=== PATIENT | female | born 1990 ===

== ENCOUNTER 2018-05-21 18:34 | Emergency (ER) | payer MEDICAID ==
[2018-05-21 18:34] VITALS: BMI 32.4
[2018-05-21 19:51] VITALS: RESP 16; TEMP 98.5
--- NOTE | 2018-05-21 20:21 | ED PDOC ---
HPI: Abdomen Time Seen by Provider: 05/21/18 20:09 Chief Complaint (Nursing): Abdominal Pain Chief Complaint (Provider): abdominal pain History Per: Patient History/Exam Limitations: no limitations Onset/Duration Of Symptoms: Days (1) Current Symptoms Are (Timing): Still Present Location Of Pain/Discomfort: RLQ, LLQ, Suprapubic Quality Of Discomfort: Cramping Additional Complaint(s): 27 y/o female presents for evaluation of lower abdominal cramping since last night. Patient states she was at the doctor on Sunday with her child who tested positive for influenza so they told her to get checked and they did a test which was positive. Denies fever, nausea/vomiting, cough, congestion, changes in bowel movements, urinary symptoms, vaginal bleeding/discharge. Abnormal Vaginal Bleeding: No Last Menstral Period: 04/03/18 : 4 Para: 1 Miscarriage: 2 Past Medical History Vital Signs: Last Vital Signs Temp 98.5 F 05/21/18 19:48 Pulse 63 05/21/18 19:48 Resp 16 05/21/18 19:48 BP 119/76 05/21/18 19:48 Pulse Ox 99 05/21/18 19:48 - Medical History PMH: Anemia - Surgical History Surgical History: Cholecystectomy Other surgeries: gastric sleeve 10/2018 - Family History Family History: States: No Known Family Hx - Home Medications Home Medications: Ambulatory Orders Medication Instructions Recorded Acetaminophen/Butalbital/Caf 1 tab PO DAILY PRN 02/14/15 [Fioricet] Ferrous Sulfate 1 tab PO DAILY 02/14/15 Ibuprofen [Motrin] 600 mg PO Q6H PRN #30 tab 02/16/15 Oxycodone HCl/Acetaminophen 1 tab PO Q4H PRN #10 tab 02/16/15 [Percocet 325 mg-5 mg] - Allergies Allergies/Adverse Reactions: Allergies Allergy/AdvReac Type Severity Reaction Status Date / Time No Known Allergies Allergy Verified 03/26/17 19:04 Review of Systems ROS Statement: Except As Marked, All Systems Reviewed And Found Negative Genitourinary Female: Positive for: Pelvic Pain Physical Exam - Reviewed Nursing Documentation Reviewed: Yes Vital Signs Reviewed: Yes - Physical Exam Appears: Positive for: Well, Non-toxic, No Acute Distress Head Exam: Positive for: ATRAUMATIC, NORMAL INSPECTION, NORMOCEPHALIC Skin: Positive for: Normal Color Eye Exam: Positive for: Normal appearance ENT: Positive for: Normal ENT Inspection Cardiovascular/Chest: Positive for: Regular Rate, Rhythm Respiratory: Positive for: Normal Breath Sounds Gastrointestinal/Abdominal: Positive for: Bowel Sounds, Soft, Tenderness (suprapubic, rlq, llq discomfort). Negative for: Distended, Guarding, Rebound Back: Positive for: Normal Inspection Extremity: Positive for: Normal ROM Neurological/Psych: Positive for: Awake, Alert, Oriented (x3) - Laboratory Results Result Diagrams: 05/21/18 20:56 05/21/18 20:56 - ECG O2 Sat by Pulse Oximetry: 99 - Progress ED Course And Treament: -upreg -udip -cbc -cmp -beta hcg -OB TV u/s History Possible . Pain. Comparison None available. Findings Uterus Possible gestational sac is seen measuring 0.2 cm. No pole, yolk sac or heart motion identified. Uterus measures 6.1 x 3.9 x 4.5 cm. No mass. Cervix Long and closed measuring 3.2 cm. No cervical abnormality seen. Right Ovary Measures 2.2 x 1.3 x 2 cm. No mass. Normal flow. Left Ovary Measures 2.5 x 1.4 x 2.7 cm. No mass. Normal flow. Free Fluid None. Other Findings None. Impression Tiny sac like structure within the endometrium which could represent early IUP. Patient educated on findings, discharged with instructions to follow up in 48 hours for repeat beta Return precautions given Disposition - Clinical Impression Clinical Impression: Abdominal pain during - Patient ED Disposition Is Patient to be Admitted: No Counseled Patient/Family Regarding: Studies Performed, Diagnosis, Need For Followup - Disposition Disposition: Routine/Home Disposition Time: 22:18 Condition: IMPROVED Instructions: Stomach Pain in Early
[2018-05-21 20:58] LABS: SQUAMOUS EPITHIAL 9 /hpf (0-5); URINE AMORPHOUS SEDIMENT FEW /ul (<OCC); URINE BACTERIA OCC (<OCC); URINE BILIRUBIN NEGATIVE (NEGATIVE); URINE BLOOD NEGATIVE (NEGATIVE); URINE COLOR YELLOW (YELLOW); URINE GLUCOSE (UA) NEG (NEGATIVE); URINE LEUKOCYTE ESTERASE NEG Leu/uL (Negative); URINE PROTEIN 30 mg/dL (NEGATIVE); URINE UROBILINOGEN 0.2-1.0 mg/dL (0.2-1.0)
[2018-05-21 21:03] LABS: BASO # 0.1 K/uL (0.0-0.2); BASO % 0.8 % (0.0-2.0); EOS # 0.2 K/uL (0.0-0.7); EOS % 1.9 % (0.0-4.0); HEMOGLOBIN 14.3 g/dL (12.0-16.0); LYMPH % 30.4 % (20.0-40.0); MEAN CELL VOLUME 93.7 fl (81.0-99.0); MEAN CORPUSCULAR HEMOGLOBIN 31.2 pg (27.0-31.0); MEAN CORPUSCULAR HGB CONC 33.3 g/dL (33.0-37.0); MEAN PLATELET VOLUME 7.8 fl (7.2-11.7); MONO # 0.3 K/uL (0.0-0.8); MONO % 3.6 % (0.0-10.0); NEUT # 6.2 K/uL (1.8-7.0); NEUT % 63.3 % (50.0-75.0); RBC 4.59 Mil/uL (3.80-5.20); RED CELL DISTRIBUTION WIDTH 13.5 % (11.5-14.5); WHITE BLOOD COUNT 9.8 K/uL (4.8-10.8)
[2018-05-21 21:08] LABS: URINE CLARITY CLOUDY (Clear)
[2018-05-21 21:13] LABS: ALB/GLOB RATIO 1.2 (1.0-2.1); ALBUMIN 3.9 g/dL (3.5-5.0); BLOOD UREA NITROGEN 8 mg/dl (7-17); CALCIUM 8.4 mg/dL (8.4-10.2); GFR NON-AFRICAN AMERICAN > 60
[2018-05-21 21:33] LABS: ALT/SGPT 42 U/L (9-52); AST/SGOT 51 U/L (14-36)
[2018-05-21 22:40] VITALS: BP 122/81; PULSE 66; O2SAT 100
--- NOTE | 2018-05-22 10:19 | US ---
Date of service: 05/21/2018 HISTORY: ; pain COMPARISON: None available. TECHNIQUE: Transvaginal FINDINGS: UTERUS: Measures 6.1 x 3.9 x 4.5 cm. Retroverted uterus. No masses seen. ENDOMETRIUM: Measures 11 mm in diameter. Within the intrauterine cavity a tiny 2 mm fluid like focus which may represent a tiny gestational sac which is out of range for dating is noted. Beta HCG levels are not now available. CERVIX: No cervical abnormality identified. Closed RIGHT OVARY: Measures 2.2 x 1.3 x 2.0 cm. No solid mass. Normal flow. LEFT OVARY: Measures 2.5 x 1.4 x 2.7 cm. No solid mass. Normal flow. FREE FLUID: No significant free fluid noted. OTHER FINDINGS: None. IMPRESSION: Tiny 2 mm intra uterine cavity fluid like focus may represent a tiny very early gestational sac it is out of range for dating. No additional pathology noted. Consider follow-up with serial beta HCG levels and follow-up transvaginal pelvic ultrasound imaging in 10 to 14 days for further clarification. Concordant results (preliminary interpretation) provided by clarice.
== END 2018-05-21 22:19 | disposition home or self-care (01) ==
LOC: H.ER 18:34
DX: O26.91 Pregnancy related conditions, unspecified, first trimester (principal); R10.2 Pelvic and perineal pain

== ENCOUNTER 2018-05-26 18:58 | Emergency (ER) | payer MEDICAID ==
[2018-05-26 19:15] VITALS: BMI 21.5
[2018-05-26 19:16] VITALS: RESP 18; O2SAT 99
--- NOTE | 2018-05-26 20:52 | ED PDOC ---
HPI: Female Pain Time Seen by Provider: 05/26/18 19:00 Chief Complaint (Nursing): Female Genitourinary Chief Complaint (Provider): Female Genitourinary History Per: Patient History/Exam Limitations: no limitations Current Symptoms Are (Timing): Still Present Additional Complaint(s): Patient is a 27 year old female with a past medical history of anemia, gallbladder removal, and gastric sleeve, who presents to the emergency department complaining abdominal cramps. Patient was seen at this hospital last week and had a US. She was told to come back because her hcg levels were low. Patient has a history of A2. PMD: brackney Past Medical History Reviewed: Historical Data, Nursing Documentation, Vital Signs Vital Signs: Last Vital Signs Temp 98.5 F 05/26/18 19:15 Pulse 75 05/26/18 19:15 Resp 18 05/26/18 19:15 BP 127/82 05/26/18 19:15 Pulse Ox 99 05/26/18 19:15 - Medical History PMH: Anemia - Surgical History Surgical History: Cholecystectomy Other surgeries: Gastric sleeve - Family History Family History: States: Unknown Family Hx - Social History Current smoker - smoking cessation education provided: Yes (0.5 packs a day) Alcohol: None Drugs: Denies - Home Medications Home Medications: Ambulatory Orders Medication Instructions Recorded Acetaminophen/Butalbital/Caf 1 tab PO DAILY PRN 02/14/15 [Fioricet] Ferrous Sulfate 1 tab PO DAILY 02/14/15 Ibuprofen [Motrin] 600 mg PO Q6H PRN #30 tab 02/16/15 Oxycodone HCl/Acetaminophen 1 tab PO Q4H PRN #10 tab 02/16/15 [Percocet 325 mg-5 mg] Pnv No.95/Ferrous Fum/Folic AC 1 tab PO DAILY #14 tab 05/27/18 [Prenavite] - Allergies Allergies/Adverse Reactions: Allergies Allergy/AdvReac Type Severity Reaction Status Date / Time No Known Allergies Allergy Verified 03/26/17 19:04 Review of Systems ROS Statement: Except As Marked, All Systems Reviewed And Found Negative Gastrointestinal: Positive for: Abdominal Pain Physical Exam - Reviewed Nursing Documentation Reviewed: Yes Vital Signs Reviewed: Yes - Physical Exam Appears: Positive for: Non-toxic, No Acute Distress Head Exam: Positive for: ATRAUMATIC, NORMOCEPHALIC Skin: Positive for: Normal Color, Warm, Dry Eye Exam: Positive for: Normal appearance ENT: Positive for: Normal ENT Inspection Neck: Positive for: Normal, Painless ROM, Supple Cardiovascular/Chest: Positive for: Regular Rate, Rhythm. Negative for: Murmur Respiratory: Positive for: Normal Breath Sounds. Negative for: Respiratory Distress Gastrointestinal/Abdominal: Positive for: Bowel Sounds, Soft, Tenderness (left suprapubic tenderness ) Extremity: Positive for: Normal ROM Neurological/Psych: Positive for: Alert, Oriented - Laboratory Results Result Diagrams: 05/26/18 20:52 - ECG O2 Sat by Pulse Oximetry: 99 (RA) Pulse Ox Interpretation: Normal Medical Decision Making Medical Decision Making: Time: 2038 Plan: , follow up hcg --Beta HCG --CBC with differential --Urine culture --Urine test POC --Urinalysis --Transvaginal US Time: 2248 --HCG went up form May 21. --On May 21 it was 721 and today it is 3360. 00:22 Obstetric ultrasound, transvaginal. Indication: Followup ultrasound exam. Comparison: 05/21/2018. Findings: The uterus measures 7.5 x3.8x4.8 cm. Retroverted uterus. Normal cervical length measuring 2.9 cm. Normal right ovary. Normal left ovary. Intrauterine gestational sac like structure. Unchanged without interval appearance of a pole. Impression: Unchanged enteric one gestational saclike structure. 00:[address] Almanza, field operations supervisor OB-hair spinner, for patient. She stated that it is likely an early and recommended patient to follow up with gynecology clinic in one week. Will discharge patient home with a prescription for vitamins. Instructed patient on importance of follow up. Return precautions provided. Scribe Attestation: Documented by Koko Ellis, acting as a scribe forEdgar Lucero MD. Provider Scribe Attestation: All medical record entries made by the Scribe were at my direction and personally dictated by me. I have reviewed the chart and agree that the record accurately reflects my personal performance of the history, physical exam, medical decision making, and the department course for this patient. I have also personally directed, reviewed, and agree with the discharge instructions and disposition Disposition - Clinical Impression Clinical Impression: Early stage of - Patient ED Disposition Is Patient to be Admitted: No Counseled Patient/Family Regarding: Studies Performed, Diagnosis, Need For Followup - Disposition Referrals: [facility] [Outside] [facility] [Outside] Disposition: Routine/Home Disposition Time: 00:20 Condition: STABLE Additional Instructions: follow up in one week in the hair spinner clinic take vitamins return to the ED with any worsening or concerning symptoms such as bleeding or pain Prescriptions: Pnv No.95/Ferrous Fum/Folic AC [Prenavite] 1 tab PO DAILY #14 tab Instructions: Medications and Forms: [facility] ([place])
[2018-05-26 21:00] LABS: BASO # 0.1 K/uL (0.0-0.2); BASO % 0.7 % (0.0-2.0); EOS # 0.1 K/uL (0.0-0.7); EOS % 0.7 % (0.0-4.0); HEMOGLOBIN 14.6 g/dL (12.0-16.0); LYMPH # 2.7 K/uL (1.0-4.3); LYMPH % 34.1 % (20.0-40.0); MEAN CELL VOLUME 92.4 fl (81.0-99.0); MEAN CORPUSCULAR HGB CONC 33.5 g/dL (33.0-37.0); MEAN PLATELET VOLUME 7.5 fl (7.2-11.7); MONO # 0.5 K/uL (0.0-0.8); MONO % 6.7 % (0.0-10.0); NEUT # 4.6 K/uL (1.8-7.0); NEUT % 57.8 % (50.0-75.0); RBC 4.72 Mil/uL (3.80-5.20); RED CELL DISTRIBUTION WIDTH 13.3 % (11.5-14.5)
[2018-05-26 21:28] LABS: SQUAMOUS EPITHIAL 4 /hpf (0-5); URINE AMORPHOUS SEDIMENT FEW /ul (<OCC); URINE BACTERIA OCC (<OCC); URINE BILIRUBIN NEGATIVE (NEGATIVE); URINE BLOOD NEGATIVE (NEGATIVE); URINE CLARITY CLOUDY (Clear); URINE COLOR AMBER (YELLOW); URINE GLUCOSE (UA) NEG (NEGATIVE); URINE LEUKOCYTE ESTERASE NEG Leu/uL (Negative); URINE PROTEIN NEGATIVE (NEGATIVE)
[2018-05-27 01:07] VITALS: BP 124/76; PULSE 72; TEMP 98.4
--- NOTE | 2018-05-27 14:45 | US ---
Date of service: 05/26/2018 HISTORY: Repeat. COMPARISON: Comparison made with prior study 05/21/2017 TECHNIQUE: Transvaginal sonographic evaluation of the pelvis performed. FINDINGS: UTERUS: Measures 7.5 x 3.8 x 4.8 cm. Normal in size and appearance.. Retroverted. No fibroid or other mass lesion seen. ENDOMETRIUM: There is a small elliptical shaped fluid collection within the endometrial canal that measures approximately 0.6 x 0.8 x 0.6 cm that appears to contain a small echogenic septation.. No discrete pole or yolk sac identified. This could represent a small very early intrauterine gestational sac and is out of range to accurately date however the possibility of an ectopic not excluded. Continued follow-up with serial quantitative serum beta HCG and serial ultrasound recommended as the possibility of an ectopic to exclude ectopic . farmer cash grain consultation also recommended. CERVIX: No cervical abnormality identified. Cervix measures approximately 2.9 cm RIGHT OVARY: Measures 2.9 x 1.9 x 1.6 cm. No solid mass. Normal flow. LEFT OVARY: Measures 3.0 x 2.4 x 2.2 cm. No solid mass. Normal flow. Left ovary exhibits a somewhat elliptical shaped peripheral rim of increased vascularity surrounding a small eccentric cystic focus. This could represent a corpus luteum cyst however the possibility of an ectopic not excluded FREE FLUID: No significant free fluid noted. OTHER FINDINGS: None. IMPRESSION: There is a small elliptical shaped fluid collection within the endometrial canal that measures approximately 0.6 x 0.8 x 0.6 cm that appears to contain a small echogenic septation.. No discrete pole or yolk sac identified. This could represent a small very early intrauterine gestational sac and is out of range to accurately date however the possibility of an ectopic not excluded. The right ovary also exhibits a somewhat elliptical shaped peripheral rim of increased vascularity surrounding a small eccentric cystic focus. While this could represent corpus luteum cyst, the possibility of an ectopic must be considered. Continued follow-up with serial quantitative serum beta HCG and serial ultrasound recommended to exclude the possibility of an ectopic . farmer cash grain consultation also recommended. This report was placed in [place] review folder for follow up
== END 2018-05-27 01:07 | disposition home or self-care (01) ==
LOC: H.ER 18:58
DX: Z33.1 Pregnant state, incidental (principal); D64.9 Anemia, unspecified; F17.210 Nicotine dependence, cigarettes, uncomplicated

== ENCOUNTER 2018-05-29 15:00 | Emergency (ER) | payer MEDICAID ==
[2018-05-29 15:00] VITALS: BMI 21.5
[2018-05-29 15:30] VITALS: BP 109/74; PULSE 67; RESP 16; TEMP 98.1; O2SAT 100
--- NOTE | 2018-05-29 15:40 | ED PDOC ---
HPI: Abdomen Time Seen by Provider: 05/29/18 15:30 Chief Complaint (Nursing): Abnormal Labs Chief Complaint (Provider): Abnormal Labs History Per: Patient History/Exam Limitations: no limitations Onset/Duration Of Symptoms: Days (x3) Current Symptoms Are (Timing): Still Present Additional Complaint(s): Patient is a 27 y/o female with a PMHx of anemia who was seen three days ago for abdominal pain for a potential early . At the time, patient's US was inconclusive. Patient was advised to followup with an OBGYN. Radiology called back and instructed patient to return to ED after a discrepancy in the US reading. After rereading US there was a noted right corpus luteal cyst and concern for a possible ectopic . Patient returns to ED for repeat BETA and US. Patient admits to left lower quadrant abdominal pain that comes and goes but denies vaginal bleeding. PCP: None Provided Past Medical History Reviewed: Historical Data, Nursing Documentation, Vital Signs Vital Signs: Last Vital Signs Temp 98.1 F 05/29/18 15:28 Pulse 67 05/29/18 15:28 Resp 16 05/29/18 15:28 BP 109/74 05/29/18 15:28 Pulse Ox 100 05/29/18 15:28 - Medical History PMH: Anemia - Surgical History Surgical History: Cholecystectomy Other surgeries: Gastric Sleeve - Family History Family History: States: Unknown Family Hx - Social History Ex-Smoker (has not smoked in the last 12 months): Yes - Home Medications Home Medications: Ambulatory Orders Medication Instructions Recorded Acetaminophen/Butalbital/Caf 1 tab PO DAILY PRN 02/14/15 [Fioricet] Ferrous Sulfate 1 tab PO DAILY 02/14/15 Ibuprofen [Motrin] 600 mg PO Q6H PRN #30 tab 02/16/15 Oxycodone HCl/Acetaminophen 1 tab PO Q4H PRN #10 tab 02/16/15 [Percocet 325 mg-5 mg] Pnv No.95/Ferrous Fum/Folic AC 1 tab PO DAILY #14 tab 05/27/18 [Prenavite] - Allergies Allergies/Adverse Reactions: Allergies Allergy/AdvReac Type Severity Reaction Status Date / Time No Known Allergies Allergy Verified 05/29/18 15:28 Review of Systems ROS Statement: Except As Marked, All Systems Reviewed And Found Negative Gastrointestinal: Positive for: Abdominal Pain (left lower quadrant) Genitourinary Female: Negative for: Vaginal Bleeding Physical Exam - Reviewed Nursing Documentation Reviewed: Yes Vital Signs Reviewed: Yes - Physical Exam Appears: Positive for: No Acute Distress Head Exam: Positive for: ATRAUMATIC, NORMAL INSPECTION, NORMOCEPHALIC Skin: Positive for: Normal Color, Warm, DRY Eye Exam: Positive for: EOMI, Normal appearance, PERRL Neck: Positive for: Normal, Painless ROM, Supple Cardiovascular/Chest: Positive for: Regular Rate, Rhythm. Negative for: Murmur Respiratory: Positive for: Normal Breath Sounds. Negative for: Respiratory Distress Gastrointestinal/Abdominal: Positive for: Normal Exam, Soft. Negative for: Tenderness Back: Positive for: Normal Inspection. Negative for: L CVA Tenderness, R CVA Tenderness, Vertebral Tenderness Extremity: Positive for: Normal ROM. Negative for: Pedal Edema, Deformity Neurological/Psych: Positive for: Alert, Oriented (x3) - ECG O2 Sat by Pulse Oximetry: 100 (RA) Pulse Ox Interpretation: Normal - Progress ED Course And Treament: US OF PELVIC: Impression: Intrauterine gestational sac measures approximately 0.9 cm, out of range for gestational age calculation. 2 mm yolk sac. No evidence of pole at this time. Recommend clinical correlation including quantitative beta HCG. Advise an anomaly screen at 16-18 weeks gestational age. D/W DR. CA. PATIENT SEEN BY HIM IN ED. PATIENT TO RETURN 05/31/2018 AM FOR REPEAT US/LABS AND DISCUSSION WITH CLOTH WINDER MACHINE OPERATOR SENIOR DEVOPS ENGINEER FOR POSSIBLE ECTOPIC AND NEED FOR METHOTREXATE. Medical Decision Making Medical Decision Making: Time: 1531 Impression: Right Corpus Luteal Cyst Noted; Possible Ectopic Plan: BETA-HCG, Quanitative OB Transvaginal US Time: 1710 Findings: The uterus measures approximately 6.0 x 3.5 x 4.6 cm. Retroverted. The gestational sac measures 0.9 cm, out of range for gestational age calculation. 2 mm yolk sac. No evidence of pole at this time. Bilateral ovaries were not visualized. Impression: Intrauterine gestational sac measures approximately 0.9 cm, out of range for gestational age calculation. 2 mm yolk sac. No evidence of pole at this time. Recommend clinical correlation including quantitative beta HCG. Advise an anomaly screen at 16-18 weeks gestational age. Time: 1714 Will repeat US to have ovaries visualized. Scribe Attestation: Documented by Emeka Castillo, acting as a scribe for Sid Holland PA-C. Provider Scribe Attestation: All medical record entries made by the Scribe were at my direction and personally dictated by me. I have reviewed the chart and agree that the record accurately reflects my personal performance of the history, physical exam, medical decision making, and the department course for this patient. I have also personally directed, reviewed, and agree with the discharge instructions and disposition. Disposition - Clinical Impression Clinical Impression: Threatened - Patient ED Disposition Is Patient to be Admitted: No - Disposition Disposition: Routine/Home Disposition Time: 19:31 Condition: FAIR Additional Instructions: PLEASE RETURN 05/31/2018 IN AM FOR REPEAT BETA HCG/LABS/TRANSVAGINAL US FOR R/O ECTOPIC Instructions: Threatened Miscarriage (DC)
--- NOTE | 2018-05-29 17:15 | US ---
Date of service: 05/29/2018 Indication: R/O ECTOPIC Comparison: Ob transvaginal ultrasound performed 05/26/18 Technique: Ob transvaginal ultrasound. Findings: The uterus measures approximately 6.0 x 3.5 x 4.6 cm. Retroverted. The gestational sac measures 0.9 cm, out of range for gestational age calculation. 2 mm yolk sac. No evidence of pole at this time. Bilateral ovaries were not visualized. Impression: Intrauterine gestational sac measures approximately 0.9 cm, out of range for gestational age calculation. 2 mm yolk sac. No evidence of pole at this time. Recommend clinical correlation including quantitative beta HCG. Advise an anomaly screen at 16-18 weeks gestational age.
--- NOTE | 2018-05-29 20:05 | CP.PCM.PN ---
Subjective - Date & Time of Evaluation Date of Evaluation: 05/29/18 Time of Evaluation: 07:00 - Subjective Subjective: Called to evaluate asymptomatic patient secondary to discrepancy in beta quant and sonographic findings. Patient's beta quant noted to be 6000 no intrauterine noted no ectopic identified. I spoke with patient regarding findings which were highly suspicious for ectopic, patient states this was a wanted we discussed the possibility of ectopic we discussed management with methotrexate today but patient declined. Patient opted for observation with repeat beta quant and ultrasound in 48 hours. We discussed signs and symptoms of ruptured ectopic . We discussed the risks of methotrexate we discussed the risks of expectant management and after thorough discussion weighing the risks benefits and alternatives to each mode of therapy patient opted for expectant management. Patient's wishes respected patient informed compliance is paramount patient return to the emergency room on Sunday morning n.p.o. for repeat beta quant and sonogram patient agreed to plan of care Objective - Vital Signs/Intake and Output Vital Signs (last 24 hours): Temp Pulse Resp BP Pulse Ox 98.1 F 67 16 109/74 100 05/29/18 15:28 05/29/18 15:28 05/29/18 15:28 05/29/18 15:28 05/29/18 19:38
== END 2018-05-29 19:37 | disposition home or self-care (01) ==
LOC: H.ER 15:00
DX: O20.0 Threatened abortion (principal)

== ENCOUNTER 2018-05-31 10:16 | Emergency (ER) | payer MEDICAID ==
[2018-05-31 10:22] VITALS: BMI 21.2
--- NOTE | 2018-05-31 10:56 | ED PDOC ---
HPI: Abdomen Additional Complaint(s): 27 y/o F with 10 day hx of lower abdominal pain, 1 day of vaginal spotting & positive test presents for repeat B-HCG testing and transvaginal ultrasound. She also endorses nausea, but denies f/c/vomitting, diarrhea or dysuria. Previous ultrasounds show no IUP, but B-HCG's have been trending upwar d. (Hcg- 721 on 05/21, 3360 on 05/26, and 6329 on 05/29). PMH: B12 deficiency Pobhx: x 1 (02/2015); 2 bx (2010 @ 2 months, 02/2018 4-5 wks) Meds: B12 knections Surghx: cholecystectomy- 2015; Gastric sleeve-10/2017 in OR, D & C 02/2018 Allergies: iodine (throat closure) Famhx: noncontributory Sochx: stopped smoking & drinking once she found out she was ROS: all points reviewed and are negative unless otherwise mentioned in HPI <Muriel Burrell - Last Filed: 05/31/18 14:18> <Quinn Amado - Last Filed: 05/31/18 17:19> Time Seen by Provider: 05/31/18 10:30 Chief Complaint (Nursing): Abnormal Labs Supervising Attending Note - Supervising Attending Note The Documented history was done by the: Physician Wire Temperer The documented physical exam was done by the: Physician Wire Temperer The documented procedures were done by the: Physician Wire Temperer - Attestation: I have personally seen and examined this patient.: Yes I have fully participated in the care of the patient.: Yes I have reviewed all pertinent clinical information: Yes - Notes: Notes:: Repeat bhcg and ultrasound. Pelvic pain. <Quinn Amado - Last Filed: 05/31/18 17:19> Past Medical History Vital Signs: Last Vital Signs Temp 98.5 F 05/31/18 10:22 Pulse 64 05/31/18 10:22 Resp 18 05/31/18 10:22 BP 104/66 05/31/18 10:22 Pulse Ox 99 05/31/18 10:22 - Medical History PMH: Anemia - Surgical History Surgical History: Cholecystectomy - Family History Family History: States: Unknown Family Hx - Immunization History Hx Tetanus Toxoid Vaccination: No Hx Influenza Vaccination: No Hx Pneumococcal Vaccination: No <Muriel Burrell - Last Filed: 05/31/18 14:18> Vital Signs: Last Vital Signs Temp 98.3 F 05/31/18 12:00 Pulse 68 05/31/18 15:00 Resp 16 05/31/18 15:00 BP 106/64 05/31/18 15:00 Pulse Ox 100 05/31/18 15:00 <AneudyQuinn M - Last Filed: 05/31/18 17:19> - Home Medications Home Medications: Ambulatory Orders Medication Instructions Recorded Acetaminophen/Butalbital/Caf 1 tab PO DAILY PRN 02/14/15 [Fioricet] Ferrous Sulfate 1 tab PO DAILY 02/14/15 Ibuprofen [Motrin] 600 mg PO Q6H PRN #30 tab 02/16/15 Oxycodone HCl/Acetaminophen 1 tab PO Q4H PRN #10 tab 02/16/15 [Percocet 325 mg-5 mg] Pnv No.95/Ferrous Fum/Folic AC 1 tab PO DAILY #14 tab 05/27/18 [Prenavite] - Allergies Allergies/Adverse Reactions: Allergies Allergy/AdvReac Type Severity Reaction Status Date / Time iodine Allergy Intermediate SHORTNESS Verified 05/31/18 10:36 OF BREATH Physical Exam - Physical Exam Appears: Positive for: Non-toxic Head Exam: Positive for: ATRAUMATIC, NORMAL INSPECTION Skin: Positive for: Normal Color Eye Exam: Positive for: Normal appearance ENT: Positive for: Normal ENT Inspection Cardiovascular/Chest: Positive for: Regular Rate, Rhythm. Negative for: Murmur Respiratory: Positive for: Normal Breath Sounds. Negative for: Wheezing Pulses-Dorsalis Pedis (L): 2+ Pulses-Dorsalis Pedis (R): 2+ Gastrointestinal/Abdominal: Positive for: Bowel Sounds, Soft, Tenderness, Other (suprapubic tenderness noted, no rigidity, no guarding, no rebound tenderness). Negative for: Guarding Extremity: Negative for: Calf Tenderness Neurological/Psych: Positive for: Awake, Alert <Muriel Burrell - Last Filed: 05/31/18 14:18> - Physical Exam Cardiovascular/Chest: Positive for: Regular Rate, Rhythm Respiratory: Positive for: Normal Breath Sounds Gastrointestinal/Abdominal: Positive for: Tenderness (mild across lower pelvic) <Quinn Amaod - Last Filed: 05/31/18 17:19> - ECG O2 Sat by Pulse Oximetry: 99 <Muriel Burrell - Last Filed: 05/31/18 14:18> - Laboratory Results Lab Results: Beta HCG, Quant 38156.00 mIU/mL 05/31/18 11:00 - ECG Pulse Ox Interpretation: Normal <Quinn Amado - Last Filed: 05/31/18 17:19> Disposition - Disposition Disposition: Routine/Home Disposition Time: 14:00 <Muriel Burrell - Last Filed: 05/31/18 14:18> <Quinn Amado - Last Filed: 05/31/18 17:19> - Clinical Impression Clinical Impression: Threatened - Disposition [facility] - [facility]18 Condition: FAIR Additional Instructions: Please follow up with your OBGYN on Sunday. Instructions: Threatened Miscarriage
--- NOTE | 2018-05-31 13:27 | US ---
Date of service: 05/31/2018 PROCEDURE: OB Pelvic Ultrasound HISTORY: preg and pain COMPARISON: None available. FINDINGS: UTERUS: Single intrauterine gestational sac. Gestational sac diameter measures 1.1 cm equivalent to 5 weeks and 0 day of gestational age. Yolk sac is visualized. pole is not identified on the current examination. age (Ultrasound estimated): 5 weeks and 0 day Date of delivery (Ultrasound estimated) : 01/31/2019 Rhonda-gestational hemorrhage: None. Uterus measures 6.4 x 4.0 x 4.8 cm. Retroverted and normal in size CERVIX: Measures 3.0 cm. Long and closed. No cervical abnormality seen. RIGHT OVARY: Measures 2.7 x 1.4 x 1.5 cm. No mass. Normal flow. LEFT OVARY: Measures 2.8 x 1.6 x 2.5 cm. No mass. Normal flow. There is a 1.6 x 1.3 x 1.6 cm corpus luteum cyst. FREE FLUID: None. OTHER FINDINGS: None. IMPRESSION: Single intrauterine gestational sac with mean gestational age of 5 weeks and 0 day. Yolk sac is visualized however pole is not identified on the current examination. The estimated date of delivery by ultrasound is 01/31/2019. Clinical and ultrasound follow-up is recommended to assess viability.
[2018-05-31 17:10] VITALS: TEMP 98.3
[2018-05-31 17:12] VITALS: BP 106/64; PULSE 68; RESP 16; O2SAT 100
== END 2018-05-31 15:00 | disposition home or self-care (01) ==
LOC: H.ER 10:16
DX: O20.0 Threatened abortion (principal); E53.8 Deficiency of other specified B group vitamins; O99.281 Endocrine, nutritional and metabolic diseases complicating pregnancy, first trimester; Z3A.01 Less than 8 weeks gestation of pregnancy; Z88.8 Allergy status to other drugs, medicaments and biological substances